=== PATIENT | male | born 1970 | race Caucasian/White ===

== ENCOUNTER 2019-01-12 18:30 | Emergency (ER) | payer OTHER ==
[~2019-01-12] VITALS: Ht 177.8 cm; Wt 90.7 kg
[~2019-01-12 18:30] MED LIST: COUMADIN 5 MG TA5 M1 PO; COUMADIN PO; LOVENOX SQ; NOHOMEMEDICATIONS; NORCO 5-325 TA1 EACH PO
[2019-01-12] MEDS ORDERED: FISH OIL 1,001000 M3 PO (18:41)
[2019-01-12] MEDS ORDERED: ASA81BEC PO (18:41)
[2019-01-12] MEDS ORDERED: NORCO 5-325 TA1 EAC1 PO (19:39)
[2019-01-12 20:02] VITALS: BP 156/64
== END 2019-01-12 20:04 | disposition home or self-care (01) ==
LOC: M.ERS 18:30
DX: M25.561 Pain in right knee (principal); Z90.79 Acquired absence of other genital organ(s); Z98.890 Other specified postprocedural states